=== PATIENT | male | born 1980 | race American Indian/Alaskan Native ===

== ENCOUNTER 2017-11-26 21:19 | Emergency (ER) | payer BC, OTHER ==
[2017-11-26] MEDS ORDERED: ASPIRIN PO ONE (22:18)
[2017-11-26 23:01] LABS: Basophils % (Auto) 1.2 % (0.0-1.8); Eosinophils # (Auto) 0.2 K/mm3 (0.0-0.4); Eosinophils % (Auto) 5.7 % (0.0-4.3); Hematocrit 42.3 % (35.5-45.6); Hemoglobin 14.4 gm/dl (11.8-15.2); Lymphocytes # (Auto) 1.5 K/mm3 (1.2-5.4); Lymphocytes % (Auto) 37.4 % (13.4-35.0); Mean Corpuscular HGB Conc 34 % (32-34); Mean Corpuscular Hemoglobin 30 pg (28-32); Mean Corpuscular Volume 87 fl (84-94); Monocytes # (Auto) 0.4 K/mm3 (0.0-0.8); Monocytes % (Auto) 8.8 % (0.0-7.3); Platelet Count 165 K/mm3 (140-440); Red Blood Count 4.86 M/mm3 (3.65-5.03); Red Cell Distribution Width 14.1 % (13.2-15.2)
[2017-11-26 23:23] LABS: BUN/Creatinine Ratio 15; Blood Urea Nitrogen 15 mg/dL (9-20); Calcium 9.4 mg/dL (8.4-10.2); Hemolysis Index 5
--- NOTE | 2017-11-27 00:46 | Emergency Department Report ---
HPI - General Chief Complaint: Chest Pain Time Seen by Provider: 11/27/17 00:38 - HPI HPI: The patient is a 37-year-old male who presents for evaluation of chest pain. Patient has a history of uncontrolled hypertension. The patient complains of left-sided chest pain, moderate in severity, radiating to the left arm and back , sharp in quality when present, and associated with dyspnea. The patient denies fever, neck pain, parasthesias, dyspnea, cough, hemoptysis, palpitations , dizziness, syncope, unilateral leg swelling, calf muscle pain. Patient also denies cocaine or other stimulant use, history of DVT or PE, recent immobilization, or history of cancer. ED Past Medical Hx - Past Medical History Hx Hypertension: Yes - Surgical History Past Surgical History?: No - Social History Smoking Status: Current Every Day Smoker Substance Use Type: None - Medications Home Medications: Home Medications Medication Instructions Recorded Confirmed Last Taken Type Hydrochlorothiazide [HCTZ] 25 mg PO QDAY #30 tablet 11/27/17 Unknown Rx traMADol [Ultram 50 MG tab] 50 mg PO Q6HR PRN #15 tablet 11/27/17 Unknown Rx ED Review of Systems ROS: Stated complaint: CHEST PAIN Other details as noted in HPI Constitutional: denies: fever ENT: denies: throat or neck pain Respiratory: denies: cough, shortness of breath Cardiovascular: reports: chest pain Endocrine: denies unexplained weight loss or gain Gastrointestinal: denies: abdominal pain, nausea Genitourinary: denies: dysuria Musculoskeletal: denies: leg swelling Skin: denies: rash Neurological: denies: headache Hematological/Lymphatic: denies: easy bleeding or easy bruising Psych: denies sadness or hopelessness Physical Exam - Physical Exam Vital Signs: Vital Signs 11/26/17 11/26/17 11/27/17 21:33 22:14 00:12 Temperature 98.3 F Pulse Rate 65 Respiratory 18 20 Rate Blood Pressure 148/100 O2 Sat by Pulse 100 100 Oximetry Physical Exam: General: well-nourished, well-developed, no acute distress Head: Normocephalic, atraumatic Eyes: normal sclera ENT: Mucous membranes are pink and moist Neck: trachea midline, neck supple, No neck stiffness, no cervical adenopathy Respiratory: Breath sounds equal bilaterally, no wheezing, rales, or rhonchi Cardio: S1 and S2 present, no murmurs, rubs, gallops, capillary refill is brisk Abdomen: Normoactive bowel sounds, soft abdomen, no rigidity, no guarding or rebound tenderness Chest WALL/Back: No tenderness to palpation of the chest wall, no CVA tenderness with percussion Musc: No pitting edema Skin: No rash Neuro: no facial drooping, normal speech Psych: Normal affect ED Course Vital Signs 11/26/17 11/26/17 11/27/17 21:33 22:14 00:12 Temperature 98.3 F Pulse Rate 65 Respiratory 18 20 Rate Blood Pressure 148/100 O2 Sat by Pulse 100 100 Oximetry ED Medical Decision Making - Lab Data Result diagrams: 11/26/17 22:31 11/26/17 22:31 - Medical Decision Making The patient was seen and examined by myself. The patient is placed on a cardiac cath technician and continuous pulse ox. On initial evaluation, the patient was found to be in no distress. EKG was negative for findings suggestive of acute cardiac infarct. Labs and imaging are obtained. Chest x-ray is negative for pneumothorax, focal consolidation, pulmonary vascular congestion, pleural effusion, or other obvious acute cardiopulmonary disease process. Lab results were non-concerning including levels of troponin, WBC, hemoglobin, hematocrit, electrolytes, renal function. CT scan the head is negative for aortic dissection or pulmonary embolus. The patient was reevaluated and reported that their symptoms were markedly improved. As the patient has a FEMI risk score less than 2, and a well's score less than 2, the patient is at low risk of ACS or pulmonary emboli etiology of their symptoms. The patient is stable for discharge with outpatient follow-up. The patient is given follow-up and return instructions. The patient expressed understanding and agreed with the plan. The patient is discharged in stable condition. Critical care attestation.: If time is entered above; I have spent that time in minutes in the direct care of this critically ill patient, excluding procedure time. ED Disposition Clinical Impression: Acute chest pain, Hypertensive urgency Disposition: [id number] TO HOME OR SELFCARE Is pt being admited?: No Does the pt Need Aspirin: No Condition: Stable Instructions: Chest Pain (ED), Chronic Hypertension (ED), Hypertension (ED) Referrals: [facility] [Outside] - 3-5 Days Time of Disposition: 00:48
--- NOTE | 2017-11-27 00:52 | XRay Report ---
FINAL REPORT EXAM: XR CHEST 1V AP HISTORY: chest pain TECHNIQUE: A portable upright view the chest was submitted. FINDINGS: The heart size and vascularity appear normal. The lungs are clear. Pleural fluid is not seen. The skeletal structures appear well maintained. IMPRESSION: No acute cardiopulmonary process.
[2017-11-27] MEDS ORDERED: APRESOLINE IV ONE ×2 (01:24→02:20)
--- NOTE | 2017-11-27 02:02 | Cat Scan Report ---
FINAL REPORT EXAM: CT ANGIO CHEST HISTORY: CP to back, Sob, htn r/o Aortic dissection PE TECHNIQUE: A CT angiogram was performed following the intravenous injection of 150 cc of Omnipaque 350. MIP sagittal coronal reconstructions were reviewed. FINDINGS: There is no evidence of pulmonary embolus. The thoracic aorta is normal in caliber. There is no evidence of dissection. The heart size is normal. Pericardial fluid is not seen. The lungs are clear. Pleural fluid is not identified. The upper abdomen the adrenal glands appear normal. The skeletal structures appear well maintained. IMPRESSION: No evidence of pulmonary embolus, or aortic dissection. No acute process in the chest.
[2017-11-27 02:34] VITALS: BP 165/99
== END 2017-11-27 02:37 | disposition home or self-care (01) ==
LOC: ED 21:19
DX: I16.0 Hypertensive urgency (principal); I10 Essential (primary) hypertension; F17.200 Nicotine dependence, unspecified, uncomplicated
CPT/HCPCS: 36415; 71045; 71275; 80048; 84484; 85025; 93005; 93010; 96374; 99285; J0360; Q9967